=== PATIENT | male | born 1955 | race Caucasian/White ===

== ENCOUNTER 2019-04-26 14:58 | Emergency (ER) | payer MEDICARE ==
[2019-04-26 15:06] VITALS: BP 157/93; PULSE 84; RESP 18; TEMP 97.9
[2019-04-26] MEDS ORDERED: SODIUM CHLORIDE 0.9% 500 ML 500 ML IV STA (15:51)
--- NOTE | 2019-04-26 15:52 | ED ---
General Adult HPI - General Source: patient, RN notes reviewed Mode of arrival: ambulatory Limitations: no limitations <Tye Siegel - Last Filed: 04/26/19 17:50> <Asuncion Morgan - Last Filed: 04/26/19 18:14> - General Chief complaint: Neuro Symptoms/Deficit Stated complaint: Rt side weakness Time Seen by Provider: 04/26/19 15:24 - History of Present Illness Initial comments: 63-year-old male with a past medical history of hypertension presents to the emergency department for a chief complaint of right-sided weakness for 7 days. Patient states that last Friday he was working with cement. States that he started to have difficulty speaking and was slurring his words. He thought he inhaled too many chemicals. Patient states he noticed he also had some mild right-sided weakness. States he thought this would go away but it has persisted over the weekend. States he saw his doctor today who recommended he come to the emergency department for a stroke evaluation. Patient denies any of these sympt oms worsening since Friday. States he feels his right leg is a little unsteady when walking. States he feels he cannot quite grab a cup normally with his right hand. Patient is right-handed. He denies headache. He denies any chest pain or shortness of breath.Patient has no other complaints at this time including shortness of breath, chest pain, abdominal pain, nausea or vomiting, headache, or visual changes. (Tye Siegel) - Related Data Home Medications Medication Instructions Recorded Confirmed amLODIPine BESYLATE/BENAZEPRIL 1 cap PO HS 03/31/14 04/26/19 [Lotrel 5-10 mg Capsule] Allergies Allergy/AdvReac Type Severity Reaction Status Date / Time sodium pentothal Allergy Rash/Hives Uncoded 04/26/19 16:04 Review of Systems ROS Other: All systems not noted in ROS Statement are negative. <Tye Siegel - Last Filed: 04/26/19 17:50> ROS Other: All systems not noted in ROS Statement are negative. <Asuncion Morgan - Last Filed: 04/26/19 18:14> ROS Statement: Those systems with pertinent positive or pertinent negative responses have been documented in the HPI. Past Medical History Past Medical History: Hypertension History of Any Multi-Drug Resistant Organisms: None Reported Past Surgical History: Hernia Repair Additional Past Surgical History / Comment(s): colonoscopy Past Anesthesia/Blood Transfusion Reactions: Postoperative Nausea & Vomiting (PONV) Additional Past Anesthesia/Blood Transfusion Reaction / Comment(s): w/colonoscopy Past Psychological History: No Psychological Hx Reported Smoking Status: Never smoker Past Alcohol Use History: None Reported Past Drug Use History: None Reported <Tye Siegel P - Last Filed: 04/26/19 17:50> General Exam Limitations: no limitations General appearance: alert, in no apparent distress Head exam: Present: atraumatic, normocephalic, normal inspection Eye exam: Present: normal appearance, PERRL, EOMI. Absent: scleral icterus, conjunctival injection, periorbital swelling ENT exam: Present: normal exam, normal oropharynx, mucous membranes moist, normal external ear exam Neck exam: Present: normal inspection, full ROM. Absent: tenderness, men ingismus, lymphadenopathy Respiratory exam: Present: normal lung sounds bilaterally. Absent: respiratory distress, wheezes, rales, rhonchi, stridor Cardiovascular Exam: Present: regular rate, normal rhythm, normal heart sounds. Absent: systolic murmur, diastolic murmur, rubs, gallop, clicks GI/Abdominal exam: Present: soft, normal bowel sounds. Absent: distended, tenderness, guarding, rebound, rigid Neurological exam: Present: alert, oriented X3, normal gait (no ataxia), other (GCS 15) Expanded Patient oriented to: Present: person, place, time Speech: Present: fluid speech (slight aphasia ) Cranial nerves: EOM's Intact: Normal, Tongue Deviation: Normal, Nystagmus: Normal, Facial Sensation: Normal Cerebellar function: Finger to Nose: Abnormal Right, Romberg: Normal Upper motor neuron: Pronator Drift: Normal Sensory exam: Upper Extremity Light Touch: Normal, Upper Extremity Pin Prick: Normal, Lower Extremity Light Touch: Normal, Lower Extremity Pin Prick: Normal Motor strength exam: RUE: 4 (positive drift), LUE: 5, RLE: 4, LLE: 5 Eye Response: (4) open spontaneously Motor Response: (6) obeys commands Verbal Response: (5) oriented Henny Total: 15 Psychiatric exam: Present: normal affect, normal mood <Tye Siegel P - Last Filed: 04/26/19 17:50> Course Vital Signs 04/26/19 15:01 Temperature 97.9 F Pulse Rate 84 Respiratory 18 Rate Blood Pressure 157/93 O2 Sat by Pulse 97 Oximetry Medical Decision Making - Lab Data Result diagrams: 04/26/19 15:45 04/26/19 15:45 <Tye Siegel - Last Filed: 04/26/19 17:50> - Lab Data Result diagrams: 04/26/19 15:45 04/26/19 15:45 <Asuncion Morgan - Last Filed: 04/26/19 18:14> - Medical Decision Making 63-year-old male with a past medical history of hypertension presents to the emergency department for a chief complaint of right-sided weakness 7 days. States that last Friday he was working with cement and started to have difficul ty speaking. He started to complain of right-sided weakness, denies is worsening. On examination patient does have a drift noted in his right leg. 4 out of 5 strength in the right upper and lower extremity. Sensation intact in the right upper and lower extremity and equal bilaterally. Patient is not ataxic. Normal gait but is complaining of weakness on the right leg. Fluid speech at this time.CBC CMP troponin negative. Chest x-ray shows an ectatic aorta, no other acute abnormalities. CT brain shows a heterogeneous 4.8 cm mass centered in the posterior left frontal lobe with extensive associated vasogenic edema and mass effect partially flattening the left lateral ventricle. Correla te for primary brain cancer or metastatic cancer. Patient was notified about these findings. They do agree to transfer to [facility]. He was given 10 mg of IV Decadron. I did discuss this case with Dr. Murphy at [facility] who accepts this transfer. Dr. Morgan also evaluated this patient. (Tye Siegel) I, Dr. Asuncion Morgan, Personally saw and examined the patient. I have reviewed and agree with the LAB COORDINATOR/PA findings, including all diagnostic interpretations and treatment plans as written unless otherwise stated. I was present for the pike portions of any procedures and the inclusive time noted for any critical care treatment. (Asuncion Morgan) - Lab Data Lab Results 04/26/19 04/26/19 04/26/19 Range/Units 15:45 15:45 15:45 WBC 7.6 (3.8-10.6) k/uL RBC 5.17 (4.30-5.90) m/uL Hgb 14.9 (13.0-17.5) gm/dL Hct 45.8 (39.0-53.0) % MCV 88.5 (80.0-100.0) fL MCH 28.7 (25.0-35.0) pg MCHC 32.5 (31.0-37.0) g/dL RDW 13.2 (11.5-15.5) % Plt Count 198 (150-450) k/uL Neutrophils % 75 % Lymphocytes % 16 % Monocytes % 6 % Eosinophils % 1 % Basophils % 0 % Neutrophils # 5.7 (1.3-7.7) k/uL Lymphocytes # 1.2 (1.0-4.8) k/uL Monocytes # 0.4 (0-1.0) k/uL Eosinophils # 0.1 (0-0.7) k/uL Basophils # 0.0 (0-0.2) k/uL PT 9.6 (9.0-12.0) sec INR 0.9 (<1.2) APTT 24.5 (22.0-30.0) sec Sodium 139 (137-145) mmol/L Potassium 4.0 (3.5-5.1) mmol/L Chloride 104 (98-107) mmol/L Carbon Dioxide 25 (22-30) mmol/L Anion Gap 10 mmol/L BUN 14 (9-20) mg/dL Creatinine 0.94 (0.66-1.25) mg/dL Est GFR (CKD-EPI)AfAm >90 (>60 ml/min/1.73 sqM) Est GFR (CKD-EPI)NonAf 85 (>60 ml/min/1.73 sqM) Glucose 96 (74-99) mg/dL Calcium 9.5 (8.4-10.2) mg/dL Total Bilirubin 0.7 (0.2-1.3) mg/dL AST 27 (17-59) U/L ALT 27 (21-72) U/L Alkaline Phosphatase 83 (38-126) U/L Troponin I (0.000-0.034) ng/mL Total Protein 7.1 (6.3-8.2) g/dL Albumin 4.5 (3.5-5.0) g/dL 04/26/19 Range/Units 15:45 WBC (3.8-10.6) k/uL RBC (4.30-5.90) m/uL Hgb (13.0-17.5) gm/dL Hct (39.0-53.0) % MCV (80.0-100.0) fL MCH (25.0-35.0) pg MCHC (31.0-37.0) g/dL RDW (11.5-15.5) % Plt Count (150-450) k/uL Neutrophils % % Lymphocytes % % Monocytes % % Eosinophils % % Basophils % % Neutrophils # (1.3-7.7) k/uL Lymphocytes # (1.0-4.8) k/uL Monocytes # (0-1.0) k/uL Eosinophils # (0-0.7) k/uL Basophils # (0-0.2) k/uL PT (9.0-12.0) sec INR (<1.2) APTT (22.0-30.0) sec Sodium (137-145) mmol/L Potassium (3.5-5.1) mmol/L Chloride (98-107) mmol/L Carbon Dioxide (22-30) mmol/L Anion Gap mmol/L BUN (9-20) mg/dL Creatinine (0.66-1.25) mg/dL Est GFR (CKD-EPI)AfAm (>60 ml/min/1.73 sqM) Est GFR (CKD-EPI)NonAf (>60 ml/min/1.73 sqM) Glucose (74-99) mg/dL Calcium (8.4-10.2) mg/dL Total Bilirubin (0.2-1.3) mg/dL AST (17-59) U/L ALT (21-72) U/L Alkaline Phosphatase (38-126) U/L Troponin I <0.012 (0.000-0.034) ng/mL Total Protein (6.3-8.2) g/dL Albumin (3.5-5.0) g/dL Disposition Is patient prescribed a controlled substance at d/c from ED?: No Time of Disposition: 17:53 - Out of Hospital Transfer - Req. Specs Out of Hospital Transfer - Requested Specifics: Other Emergency Center ([facility]) <Tye Siegel P - Last Filed: 04/26/19 17:50> <Asuncion Morgan - Last Filed: 04/26/19 18:14> Clinical Impression: Brain mass, Right sided weakness Disposition: OTHER INSTITUTION NOT DEFINED Condition: Good Referrals: Madison Asher MD [Primary Care Provider] - 1-2 days
[2019-04-26 16:01] LABS: Basophils % (A) 0 %; Eosinophils # (A) 0.1 k/uL (0-0.7); Eosinophils % (A) 1 %; HCT 45.8 % (39.0-53.0); HGB 14.9 gm/dL (13.0-17.5); Lymphocytes # (A) 1.2 k/uL (1.0-4.8); Lymphocytes % (A) 16 %; MCH 28.7 pg (25.0-35.0); MCHC 32.5 g/dL (31.0-37.0); MCV 88.5 fL (80.0-100.0); Mean Platelet Volume 7.4; Monocytes # (A) 0.4 k/uL (0-1.0); Monocytes % (A) 6 %; Neutrophils # (A) 5.7 k/uL (1.3-7.7); Neutrophils % (A) 75 %; Platelet Count 198 k/uL (150-450); RBC 5.17 m/uL (4.30-5.90); RDW 13.2 % (11.5-15.5); WBC 7.6 k/uL (3.8-10.6)
[2019-04-26 16:09] LABS: ALT 27 U/L (21-72); AST 27 U/L (17-59); African American GFR (CKD) >90 (>60 ml/min/1.73 sqM); Albumin 4.5 g/dL (3.5-5.0); Alkaline Phosphatase 83 U/L (38-126); Anion Gap 10 mmol/L; Blood Urea Nitrogen 14 mg/dL (9-20); Calcium 9.5 mg/dL (8.4-10.2); Carbon Dioxide 25 mmol/L (22-30); Chloride 104 mmol/L (98-107); Glucose 96 mg/dL (74-99); INR 0.9 (<1.2); Sodium 139 mmol/L (137-145); Total Bilirubin 0.7 mg/dL (0.2-1.3); Total Protein 7.1 g/dL (6.3-8.2)
[2019-04-26 16:10] LABS: Partial Thromboplastin Time 24.5 sec (22.0-30.0); Prothrombin Time 9.6 sec (9.0-12.0)
--- NOTE | 2019-04-26 16:23 | CT ---
EXAMINATION TYPE: CT brain wo con DATE OF EXAM: 04/26/2019 COMPARISON: None HISTORY: 63-year-old male Right sided weakness. TECHNIQUE: Examination was done in axial plane without intravenous contrast. Coronal and sagittal r econstructions performed. CT DLP: 1082.4 mGycm Automated exposure control for dose reduction was used. FINDINGS: There is a heterogeneous mass along the posterior left frontal lobe measuring 4.8 cm with extensive s urrounding vasogenic edema in the left cerebral hemisphere. There is mass effect partially effacing t he left lateral ventricle. No midline shift or herniation is seen. The crowding and vasogenic edema r esults in asymmetric sulcal effacement on the left. No evidence for acute intracranial hemorrhage, hydrocephalus, midline shift. Paranasal sinuses and mastoid air cells well pneumatized. Orbits and globes are intact. IMPRESSION: 1. Heterogeneous 4.8 cm mass centered in the posterior left frontal lobe with extensive associated va sogenic edema partially flattening the left lateral ventricle. Correlate for primary brain cancer or metastatic disease. 2. No herniation or midline shift seen at this time.
--- NOTE | 2019-04-26 16:31 | XR ---
EXAMINATION TYPE: XR chest 2V DATE OF EXAM: 04/26/2019 COMPARISON: None HISTORY: 63 year-old male altered mental status, right-sided weakness, confusion TECHNIQUE: PA and lateral views FINDINGS: Heart is normal size. Elongation/ectasia of the thoracic aorta. Hyperinflation. No consolidation or p leural effusion. IMPRESSION: Elongated/ectatic thoracic aorta. Mild hyperinflation may relate to depth of inspiration or underlyin g emphysema. Otherwise, no acute process seen.
[2019-04-26] MEDS ORDERED: DEXAMETHASONE SOD PHOSPHATE 10 MG/ML 1 ML VIAL IV STA (16:54)
== END 2019-04-26 18:51 | disposition other institution (70) ==
LOC: EC 14:58
DX: G93.9 Disorder of brain, unspecified (principal); I10 Essential (primary) hypertension; Z79.899 Other long term (current) drug therapy; Z88.8 Allergy status to other drugs, medicaments and biological substances
CPT/HCPCS: 36415; 80053; 84484; 85025; 85610; 85730; 71046; 70450; 99285; 96374; 96361 ×3; J1100

== ENCOUNTER 2019-07-14 15:25 | Emergency (ER) | payer MEDICARE ==
[2019-07-14 15:51] VITALS: RESP 18
[2019-07-14] MEDS ORDERED: SODIUM CHLORIDE 0.9% 1,000 ML IV STA (16:28)
--- NOTE | 2019-07-14 16:35 | ED ---
General Adult HPI - General Chief complaint: GI Bleed Stated complaint: Bloody Stool-ca pa Time Seen by Provider: 07/14/19 16:19 Source: patient, RN notes reviewed Mode of arrival: ambulatory Limitations: no limitations - History of Present Illness Initial comments: Patient is a pleasant 64-year-old male presenting to the emergency department with complaints of concerns with bleeding in the rectal area. Patient felt a little bit constipated today and used a glycerin suppository. Patient thinks his fingernail scratched the rectal region. Patient then had a large bowel movement and did have some associated bleeding. Bleeding lasted for a few min utes and has since stopped. No bleeding at this time. Patient only has minimal discomfort of the area of scratch. No other area of discomfort. No abdominal pain. No shortness of breath or increased fatigue or weakness. No vomiting however has chronic nausea from his treatment. Patient has known brain cancer with previous surgical incision and currently is on radiation and oral chemotherapy - Related Data Home Medications Medication Instructions Recorded Confirmed Magnesium (Unknown Dosage) 1 tab PO DAILY 07/14/19 07/14/19 Ondansetron HCl [Zofran] 8 mg PO DIRECTED 07/14/19 07/14/19 Sulfamethox-Tmp 800-160Mg [Bactrim 1 tab PO MOWEFR 07/14/19 07/14/19 DS 800-160 mg] Temozolomide [Temodar] 180 mg PO DIRECTED 07/14/19 07/14/19 Allergies Allergy/AdvReac Type Severity Reaction Status Date / Time sodium pentothal Allergy Rash/Hives Uncoded 07/14/19 16:34 Review of Systems ROS Statement: Those systems with pertinent positive or pertinent negative responses have been documented in the HPI. ROS Other: All systems not noted in ROS Statement are negative. Constitutional: Denies: fever Eyes: Denies: eye pain ENT: Denies: ear pain Respiratory: Denies: cough, dyspnea Cardiovascular: Denies: chest pain Endocrine: Denies: fatigue Gastrointestinal: Reports: as per HPI. Denies: abdominal pain Genitourinary: Denies: urgency Musculoskeletal: Denies: back pain Skin: Denies: rash Neurological: Denies: confusion Past Medical History Past Medical History: Cancer, Hypertension Additional Past Medical History / Comment(s): brain cancer History of Any Multi-Drug Resistant Organisms: None Reported Past Surgical History: Hernia Repair Additional Past Surgical History / Comment(s): colonoscopy, brain surgery for tumor removal, radiation on brain Past Anesthesia/Blood Transfusion Reactions: Postoperative Nausea & Vomiting (PONV) Additional Past Anesthesia/Blood Transfusion Reaction / Comment(s): w/colonoscopy Past Psychological History: No Psychological Hx Reported Smoking Status: Never smoker Past Alcohol Use History: None Reported Past Drug Use History: None Reported General Exam Limitations: no limitations General appearance: alert, in no apparent distress Head exam: Present: normocephalic Eye exam: Present: normal appearance, PERRL ENT exam: Present: normal oropharynx Neck exam: Present: normal inspection Respiratory exam: Present: normal lung sounds bilaterally Cardiovascular Exam: Present: regular rate, normal rhythm GI/Abdominal exam: Present: soft. Absent: tenderness Rectal exam: Present: other (Patient has small tear external to the rectum at approximately the 2 o'clock position less than 1 cm and well approximated. There is some mild dried blood in the area. Rectal exam with brown stool.). Absent: black stool, bloody stool Extremities exam: Present: normal inspection Neurological exam: Present: alert Psychiatric exam: Present: normal affect, normal mood Skin exam: Present: normal color Course Vital Signs 07/14/19 15:46 Temperature 97.8 F Pulse Rate 85 Respiratory 18 Rate Blood Pressure 136/87 O2 Sat by Pulse 98 Oximetry Medical Decision Making - Medical Decision Making Patient reevaluated and resting comfortably in bed and remained symptom-free. Patient does request discharge home. Patient updated on results and need for follow-up. - Lab Data Result diagrams: 07/14/19 16:49 07/14/19 16:49 Lab Results 07/14/19 07/14/19 07/14/19 Range/Units 16:49 16:49 16:49 WBC 8.5 (3.8-10.6) k/uL RBC 4.50 (4.30-5.90) m/uL Hgb 13.6 (13.0-17.5) gm/dL Hct 41.3 (39.0-53.0) % MCV 91.8 (80.0-100.0) fL MCH 30.3 (25.0-35.0) pg MCHC 33.0 (31.0-37.0) g/dL RDW 13.6 (11.5-15.5) % Plt Count 234 (150-450) k/uL Neutrophils % 83 % Lymphocytes % 10 % Monocytes % 5 % Eosinophils % 1 % Basophils % 0 % Neutrophils # 7.0 (1.3-7.7) k/uL Lymphocytes # 0.8 L (1.0-4.8) k/uL Monocytes # 0.4 (0-1.0) k/uL Eosinophils # 0.1 (0-0.7) k/uL Basophils # 0.0 (0-0.2) k/uL PT 9.7 (9.0-12.0) sec INR 0.9 (<1.2) APTT 24.9 (22.0-30.0) sec Sodium 139 (137-145) mmol/L Potassium 4.0 (3.5-5.1) mmol/L Chloride 105 (98-107) mmol/L Carbon Dioxide 25 (22-30) mmol/L Anion Gap 9 mmol/L BUN 14 (9-20) mg/dL Creatinine 0.89 (0.66-1.25) mg/dL Est GFR (CKD-EPI)AfAm >90 (>60 ml/min/1.73 sqM) Est GFR (CKD-EPI)NonAf 89 (>60 ml/min/1.73 sqM) Glucose 98 (74-99) mg/dL Calcium 9.5 (8.4-10.2) mg/dL Total Bilirubin 0.4 (0.2-1.3) mg/dL AST 33 (17-59) U/L ALT 41 (21-72) U/L Alkaline Phosphatase 71 (38-126) U/L Total Protein 6.5 (6.3-8.2) g/dL Albumin 4.2 (3.5-5.0) g/dL Stool Occult Blood (Negative) 07/14/19 Range/Units 16:49 WBC (3.8-10.6) k/uL RBC (4.30-5.90) m/uL Hgb (13.0-17.5) gm/dL Hct (39.0-53.0) % MCV (80.0-100.0) fL MCH (25.0-35.0) pg MCHC (31.0-37.0) g/dL RDW (11.5-15.5) % Plt Count (150-450) k/uL Neutrophils % % Lymphocytes % % Monocytes % % Eosinophils % % Basophils % % Neutrophils # (1.3-7.7) k/uL Lymphocytes # (1.0-4.8) k/uL Monocytes # (0-1.0) k/uL Eosinophils # (0-0.7) k/uL Basophils # (0-0.2) k/uL PT (9.0-12.0) sec INR (<1.2) APTT (22.0-30.0) sec Sodium (137-145) mmol/L Potassium (3.5-5.1) mmol/L Chloride (98-107) mmol/L Carbon Dioxide (22-30) mmol/L Anion Gap mmol/L BUN (9-20) mg/dL Creatinine (0.66-1.25) mg/dL Est GFR (CKD-EPI)AfAm (>60 ml/min/1.73 sqM) Est GFR (CKD-EPI)NonAf (>60 ml/min/1.73 sqM) Glucose (74-99) mg/dL Calcium (8.4-10.2) mg/dL Total Bilirubin (0.2-1.3) mg/dL AST (17-59) U/L ALT (21-72) U/L Alkaline Phosphatase (38-126) U/L Total Protein (6.3-8.2) g/dL Albumin (3.5-5.0) g/dL Stool Occult Blood Positive (Negative) - Radiology Data Radiology results: image reviewed (Abdominal x-ray shows no acute process) Disposition Clinical Impression: Rectal tear Disposition: HOME SELF-CARE Condition: Stable Instructions (If sedation given, give patient instructions): Gastrointestinal Bleeding (ED) Additional Instructions: Please follow-up tomorrow with primary care physician. Please also follow-up with your oncologist tomorrow prior to taking your medication. Return for shortness of breath, increased weakness or fatigue, bleeding, worsening symptoms or any other concerns. Is patient prescribed a controlled substance at d/c from ED?: No Referrals: Madison Asher MD [Primary Care Provider] - 1-2 days Time of Disposition: 17:41
[2019-07-14 17:10] LABS: Basophils % (A) 0 %; Eosinophils # (A) 0.1 k/uL (0-0.7); Eosinophils % (A) 1 %; HCT 41.3 % (39.0-53.0); HGB 13.6 gm/dL (13.0-17.5); Lymphocytes # (A) 0.8 k/uL (1.0-4.8); Lymphocytes % (A) 10 %; MCH 30.3 pg (25.0-35.0); MCV 91.8 fL (80.0-100.0); Mean Platelet Volume 7.4; Monocytes # (A) 0.4 k/uL (0-1.0); Monocytes % (A) 5 %; Neutrophils % (A) 83 %; Platelet Count 234 k/uL (150-450); RDW 13.6 % (11.5-15.5); WBC 8.5 k/uL (3.8-10.6)
[2019-07-14 17:13] LABS: INR 0.9 (<1.2); Partial Thromboplastin Time 24.9 sec (22.0-30.0); Prothrombin Time 9.7 sec (9.0-12.0)
[2019-07-14 17:14] LABS: ALT 41 U/L (21-72); AST 33 U/L (17-59); African American GFR (CKD) >90 (>60 ml/min/1.73 sqM); Albumin 4.2 g/dL (3.5-5.0); Alkaline Phosphatase 71 U/L (38-126); Anion Gap 9 mmol/L; Blood Urea Nitrogen 14 mg/dL (9-20); Calcium 9.5 mg/dL (8.4-10.2); Carbon Dioxide 25 mmol/L (22-30); Chloride 105 mmol/L (98-107); Glucose 98 mg/dL (74-99); Sodium 139 mmol/L (137-145); Total Bilirubin 0.4 mg/dL (0.2-1.3); Total Protein 6.5 g/dL (6.3-8.2)
--- NOTE | 2019-07-14 17:32 | XR ---
EXAMINATION TYPE: XR abdomen 1V DATE OF EXAM: 07/14/2019 COMPARISON: NONE HISTORY: Red stool. Blood clots. TECHNIQUE: 2 views FINDINGS: 2 views upright show no sign of intestinal obstruction or pneumoperitoneum. Fecal pattern i s normal. There are no pathologic calcifications over the kidneys. IMPRESSION: Nonacute abdomen.
[2019-07-14 18:08] VITALS: BP 147/90; PULSE 77; TEMP 98.8
== END 2019-07-14 18:07 | disposition home or self-care (01) ==
LOC: EC 15:25
DX: S36.63XA Laceration of rectum, initial encounter (principal); R11.0 Nausea; Z88.8 Allergy status to other drugs, medicaments and biological substances; Z79.899 Other long term (current) drug therapy; Z85.841 Personal history of malignant neoplasm of brain; Z92.21 Personal history of antineoplastic chemotherapy; Z92.3 Personal history of irradiation; Z98.890 Other specified postprocedural states; Z53.8 Procedure and treatment not carried out for other reasons; X58.XXXA Exposure to other specified factors, initial encounter
CPT/HCPCS: 36415; 74018; 80053; 82272; 85025; 85610; 85730; 99283

== ENCOUNTER 2020-02-05 04:39 | Emergency (ER) | payer MEDICARE ==
[~2020-02-05 04:39] MED LIST: DEXTROSE 50% SYRINGE 50 ML IVP ONE; EPINEPHrine 10 ML SYRINGE (0.1 MG/ML) ONE; SODIUM BICARB 8.4% 50 ML SYR (1 MEQ/ML) ONE
[2020-02-05 04:50] LABS: Glucose,Whole Blood 26 mg/dL (75-99)
--- NOTE | 2020-02-05 04:54 | ED ---
CPR HPI - General Stated Complaint: Cardiac arrest Time Seen by Provider: 02/05/20 04:40 Source: RN notes reviewed, old records reviewed Mode of arrival: EMS Limitations: altered mental status, physical limitation - History of Present Illness Initial Comments: This is a 64-year-old male who EMSs called secondary difficulty breathing EMS states test in route patient became unresponsive and pulseless CPR was initiated patient was intubated in the field patient presents to ER with continued asystole, pulseless patient is currently intubated and. Resuscitated secondary to ACLS protocol was given epi prior to arrival MD Complaint: found unresponsive (On arrival to ER), stopped breathing (Patient was having difficulty breathing per EMS call and route patient became unresponsive with no pulse) -: hour(s) (45) Place: home Bystander CPR Performed: No AED Applied by Bystander/Branch Manager: Yes Shock Advised: No Initial Findings in the Field: agonal (Decreased respirations and difficulty breathing) ROSC in the Field: No Associated Injuries: No Associated Symptoms: shortness of breath Treatments Prior to Arrival: intubation, epinephrine mgs # - Related Data Home Medications Medication Instructions Recorded Confirmed Magnesium (Unknown Dosage) 1 tab PO DAILY 07/14/19 07/14/19 Ondansetron HCl [Zofran] 8 mg PO DIRECTED 07/14/19 07/14/19 Sulfamethox-Tmp 800-160Mg [Bactrim 1 tab PO MOWEFR 07/14/19 07/14/19 DS 800-160 mg] Temozolomide [Temodar] 180 mg PO DIRECTED 07/14/19 07/14/19 Allergies Allergy/AdvReac Type Severity Reaction Status Date / Time sodium pentothal Allergy Rash/Hives Uncoded 07/14/19 16:34 Review of Systems ROS Statement: Those systems with pertinent positive or pertinent negative responses have been documented in the HPI. ROS Other: All systems not noted in ROS Statement are negative. Past Medical History Past Medical History: Cancer, Hypertension Additional Past Medical History / Comment(s): brain cancer History of Any Multi-Drug Resistant Organisms: None Reported Past Surgical History: Hernia Repair Additional Past Surgical History / Comment(s): colonoscopy, brain surgery for tumor removal, radiation on brain Past Anesthesia/Blood Transfusion Reactions: Postoperative Nausea & Vomiting (PONV) Additional Past Anesthesia/Blood Transfusion Reaction / Comment(s): w/colonoscopy Past Psychological History: No Psychological Hx Reported Smoking Status: Never smoker Past Alcohol Use History: None Reported Past Drug Use History: None Reported General Exam Limitations: altered mental status General appearance: obtunded, in distress Head exam: Present: atraumatic, normocephalic, normal inspection Eye exam: Present: normal appearance, other (Pupils are fixed and dilated). Absent: scleral icterus, conjunctival injection, periorbital swelling ENT exam: Present: normal exam, mucous membranes moist Neck exam: Present: normal inspection. Absent: tenderness, meningismus, lymphadenopathy Respiratory exam: Present: decreased breath sounds. Absent: respiratory distress, wheezes, rales, rhonchi, stridor Cardiovascular Exam: Present: normal heart sounds. Absent: systolic murmur, diastolic murmur, rubs, gallop, clicks GI/Abdominal exam: Present: soft, normal bowel sounds. Absent: distended, tenderness, guarding, rebound, rigid Extremities exam: Present: normal inspection, full ROM, normal capillary refill. Absent: tenderness, pedal edema, joint swelling, calf tenderness Back exam: Present: normal inspection Skin exam: Present: cyanosis, pallor, mottled. Absent: rash Course - Reevaluation(s) Reevaluation #1: 02/05/20 05:19 Medical record is reviewed Reevaluation #2: 02/05/20 05:19 Spoke with patient's and made her aware of patient's change in condition Reevaluation #3: 02/05/20 05:19 Patient pronounced at 0501, no cardiac activity with cardiac standsti ll, pupils fixed and dilated with no respiratory effort for breath sounds, no heart sounds 02/05/20 05:25 This is after 20 minutes of CPR initially was protocol in the emergency department and over 40 minutes in the field Medical Decision Making - Medical Decision Making 64 male who did in the emergency department[place] [id number] of - Lab Data Lab Results 02/05/20 Range/Units 04:47 POC Glucose (mg/dL) 26 L (75-99) mg/dL POC Glu Tuft Machine Operator ID Magalis Batista Disposition Clinical Impression: Cardiopulmonary arrest Disposition: Condition: Critical Is patient prescribed a controlled substance at d/c from ED?: No Referrals: Madison Asher MD [Primary Care Provider] - 1-2 days Preliminary Cause of : CPA
== END 2020-02-05 07:48 | disposition expired ==
LOC: EC 04:39
DX: I46.9 Cardiac arrest, cause unspecified (principal); Z79.899 Other long term (current) drug therapy; Z88.8 Allergy status to other drugs, medicaments and biological substances; Z85.841 Personal history of malignant neoplasm of brain; Z98.890 Other specified postprocedural states; Z92.3 Personal history of irradiation
CPT/HCPCS: 36415; 92950; 99285